=== PATIENT | male | born 1985 | race African-American/Black ===

== ENCOUNTER 2017-04-29 12:16 | Inpatient (IN) | payer SELFPAY ==
[2017-04-29] VITALS (9 sets, daily range): BP systolic 104–125; BP diastolic 61–77; Ht 182.9 cm; Wt 92.7 kg
[~2017-04-29] VITALS: Ht 182.9 cm; Wt 92.7 kg
--- NOTE | ~2017-04-29 | CN ---
PATIENT NAME:MATHEW PRETTY MEDICAL RECORD: [id number] : 81 LOCATION:[id number] ADMIT DATE: 04/29/17 ACCOUNT: [id number] CONSULTING PHYSICIAN: GUILLERMO MAYES MD REFERRING PHYSICIAN: CLARITA JORGE MD CONSULT DATE: 04/30/17 HISTORY OF PRESENT ILLNESS: The patient is a 31-year-old gentleman with no known medical history. He was brought in by EMS. He initially was combative and was given Versed and Haldol. Currently he is somewhat difficult to wake. Toxicology screen was positive for opiates, amphetamines, and benzodiazepines. He had elevated troponin at 0.8. Electrocardiogram is without acute change. Left ventricular hypertrophy only. He denies chest pain. Otherwise, poor historian. PAST MEDICAL HISTORY: Unremarkable per chart. ALLERGIES: None known per chart. SOCIAL HISTORY: Unobtainable. REVIEW OF SYSTEMS: Unobtainable. CURRENT MEDICATIONS: None known. PHYSICAL EXAMINATION: GENERAL: Sedated, appears well. No acute distress. VITAL SIGNS: Blood pressure 103/68. Pulse 55 and regular. HEAD, EYES, EARS, NOSE, AND THROAT: Normocephalic, atraumatic. NECK: No bruits. HEART: Regular. LUNGS: Good air excursion. ABDOMEN: Soft, nontender. PULSES: 2+ with no edema. ELECTROCARDIOGRAM: Shows left ventricular hypertrophy with sinus arrhythmia. 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 Given age and no electrocardiographic changes, suspect this may be related to a vasospastic component. Will check echocardiographic study to assess any focal wall motion. However, no further methamphetamine use would probably be the preferred treatment at this point. GUILLERMO MAYES MD CC: [id number] DICTATION DATE: 04/30/172002 ENGRAVER SEALS: TC 04/30/172001 ADM IN [facility] [address] [place] [address]
[2017-04-29 12:33] LABS: BASOPHILS 0.3 % (0-2); EOSINOPHILS 1.1 % (0-7); HEMATOCRIT 43.7 % (42.0-54.0); HEMOGLOBIN 14.7 g/dL (13.5-17.5); IMMATURE GRANULOCYTES 0.1 % (0-5); LYMPHOCYTES 18.4 % (15-50); MCH 27.5 pg (26.0-34.0); MCHC 33.6 g/dL (31.0-37.0); MCV 81.7 fL (80.0-100.0); MEAN PLATELET VOLUME 10.3 fL (7.4-10.4); MONOCYTES 12.9 % (2-11); NEUTROPHILS 67.2 % (40-80); PLATELET COUNT 202 10x3/uL (130-400); RBC 5.35 10x6/uL (4.20-6.10); RDW 13.3 % (11.5-14.5)
[2017-04-29 12:40] LABS: UDS - AMPHET POSITIVE QUAL (NEGATIVE); UDS - BARB NEGATIVE QUAL (NEGATIVE); UDS - BENZO POSITIVE QUAL (NEGATIVE); UDS - COCAINE NEGATIVE QUAL (NEGATIVE); UDS - METH NEGATIVE QUAL (NEGATIVE); UDS - OPIATE POSITIVE QUAL (NEGATIVE); UDS - PCP NEGATIVE QUAL (NEGATIVE); UDS - THC NEGATIVE QUAL (NEGATIVE)
[2017-04-29 12:42] LABS: APPEARANCE HAZY (CLEAR); BILIRUBIN 1+ (NEGATIVE); COLOR YELLOW (YELLOW); GLUCOSE NEGATIVE (NEGATIVE); KETONE SMALL mg/dL (NEGATIVE); LEUKOCYTE ESTERASE TRACE (NEGATIVE); NITRITE NEGATIVE (NEGATIVE); PROTEIN 2+ mg/dL (NEGATIVE); SPECIFIC GRAVITY 1.025 (1.005-1.020); UROBILINOGEN NORMAL (NORMAL)
[2017-04-29 12:45] LABS: ALBUMIN 4.3 g/dL (3.4-5.0); ANION GAP 14.2 mmol/L (8-16); BILIRUBIN - TOTAL 0.76 mg/dL (0.2-1.3); CALCIUM 9.2 mg/dL (8.5-10.1); CARBON DIOXIDE 26.8 mmol/L (21.0-32.0); PROTEIN - SERUM 8.7 g/dL (6.4-8.2)
[2017-04-29 12:47] LABS: BACTERIA MANY /hpf (NONE SEEN); EPITHELIAL CELLS 0-5 /hpf (0-5); RED CELLS - URINE 0-5 /hpf (0-5); WHITE CELLS - URINE 0-5 /hpf (0-5)
[2017-04-29 12:48] LABS: GRANULAR CAST 0-5 /lpf (NONE SEEN); HYALINE CAST 0-5 /lpf (NONE SEEN); MUCUS >1+ /lpf (NONE SEEN)
[2017-04-29 12:51] LABS: CREATININE - SERUM 1.2 mg/dL (0.6-1.3)
[2017-04-29 13:40] LABS: CKMB 4.4 U/L (0.0-3.6)
[2017-04-29 13:41] LABS: CREATINE KINASE 1218 UL (21-232)
[2017-04-29 15:25] LABS: CREATINE KINASE 1051 UL (21-232)
[2017-04-29 15:26] LABS: TROPONIN-I 0.809 ng/mL (0.000-0.060)
[2017-04-29 15:28] LABS: CKMB 4.3 U/L (0.0-3.6)
--- NOTE | 2017-04-29 15:45 | NUR ---
1515 RECEIVED PT FROM ER VIA [facility][ANIONED BY ER NURSE AND FAMILY. TRANSFERRED TO ICU BED HOOKED UP TO MONITORS. VSS. PT SNORING, UNREPSONSIVE EXCEPT TO PAINFUL STIMULI. WILL WITHDRAWAL, DOES NOT FOLLOW COMMANDS. GIVEN HALDOL AND VERSED IN ROUTE BY EMS PER ER NURSE. LUNGS NOTED TO BE COARSE. MAGALLANES IN PLACE DRAINING DARK URINE TO BEDSIDE BAG. ASSESSMENT COMPLETED, ALL HX OBTAINED BY MOTHER AT THE BEDSIDE. ALL QUESITONS ANSWERED. NO DISTRESS NOTED WILL CONTINUE TO MONITOR CLOSELY
--- NOTE | 2017-04-29 17:13 | NUR ---
IN UNIT TO SEE PT, NEW ORDER TO CINSULT CARDIOLOGY SPOKE WITH REC THERAPIST [employer] SUPERINTENDENT AND REPORTED LAB VALUES TO HIM, ANSWERED HIS QUESTIONS. REC THERAPIST STATED NOT TO DRAW ANY MORE CARDIAC ENZYMES ON PT. WILL CONT TO MONITOR
--- NOTE | 2017-04-29 19:30 | NUR ---
Assessment complete. See flowsheet. Pt snoring upon entrance and self-positioned to back with HOB @ 30 degrees upon entrance into room. Pt receiving O2 @ 5L NC with SPO2 98% and decreased to 4L NC to maintain SPO2 > 92%. Pt grimaces to painful stimulation and withdraws extremities but does not open eyes or attempt to conversate or follow commands. Lung sounds clear to all muñoz. HR SR with S1S2 auscultated. All peripheral pulses +2 with capillary refill <3 seconds. Right hand 20g PIV site CDI; saline locked. Left wrist 18g PIC site CDI; saline locked. BS present to all quadrants. Pt continues to rest and snore. Call light within pt reach. VSS. CPOC.
--- NOTE | 2017-04-29 21:30 | NUR ---
Pt mother here and pt awakens briefly for sips of water and back to sleep. FiO2 decreased to 3L NC.
--- NOTE | 2017-04-29 23:30 | NUR ---
Reassessment complete. See flowsheet. Pt resting with VSS and awakens to verbal stimulation and very lethargic. Pt helped with sips of water and back to sleep without conversation. O2 decreased to 2L NC. Lung sounds CTA. HR SR with S1S2 auscultated. All peripheral pulses +2 with capillary refill <3 seconds. BS present to all quadrants. PIV sites remain CDI; saline locked. NO other changes to note. Call light and bedside table remain within pt reach. CPOC.
[2017-04-30] VITALS (24 sets, daily range): BP systolic 98–127; BP diastolic 45–93
--- NOTE | 2017-04-30 01:30 | NUR ---
Pt awake and lethargic and helped with sips of water. Pt speech very quiet but denies pain at this time. Pt self-positioning to right side after sips and eyes closed again to rest. VSS. O2 @ 2L NC. Call light and bedside table remain within pt reach. CPOC.
--- NOTE | 2017-04-30 03:30 | NUR ---
Reassessment complete. See flowsheet. Pt resting quietly to right side with VSS. SPO2 98% on 2L NC. Pt awakens to verbal stimulation and follows conversation briefly. Pt is soft-spoken but oriented at this time. Pain denied. Pt provided with fresh water per request. Lung sounds CTA. HR SR with S1S2 auscultated. All peripheral pulses +2 with capillary refill <3 seconds. PIV sites remain CDI; saline locked with no s/s infection. BS +. Pt continues to self-position for comfort. Further needs denied. Pt continues to rest. Call light and bedside table within pt reach. CPOC.
--- NOTE | 2017-04-30 05:30 | NUR ---
Pt resting quietly with VSS. NO s/s pain or distress and allowed to continue resting undisturbed. Call light and bedside table remain within reach. CPOC.
--- NOTE | 2017-04-30 08:18 | NUR ---
PATIENT SLEEPING AROUSES TO VERBAL STIMULI FOR ASSESSMENT THEN RETURNS TO SLEEP. PATIENT DENIES ANY PAIN OR NEEDS AT THIS TIME. CALL LIGHT WITHIN REACH, AND BED IN LOW POSISTION. PATIENT IS ORIENTED X3, COMMUNICATES NEEDS WELL. LUNGS CTA THROUGHOUT ALL LOBES, RESPIRATIONS UNLABORED AND EVEN. HEART TONES RRR AUSC, ALL SMC'S ARE INTACT. ABDOMEN SOFT AND NON-TENDER TO PALPATION, BS PRESENT X4 QUADS. SKIN WARM, DRY, AND PINK. CAP REFILL<3SECS. SALINE LOCK NOTED IN L WRIST 18G AND L HAND 20G BOTH ARE INTACT. PATIENT HAS SCD'S ON.
--- NOTE | 2017-04-30 09:17 | NUR ---
PATIENT AWAKE AND REQUESTING SOMETHING TO EAT. REGULAR DIET ORDERED. MOTHER AT BEDSIDE VISISTING WITH NO ISSUES. H2O GIVEN PER PATIENT REQUEST.
--- NOTE | 2017-04-30 09:30 | NUR ---
PATIENT REQUESTING TO SPEAK WITH PHYSICIAN BECAUSE HE WANTS TO LEAVE. EXPLAINED TO PATIENT THAT PHYSICIAN HAD ALREADY MADE HIS ROUNDS, THAT HIS BREAKFAST HAD BEEN ORDERED, AND THAT HE COULD LEAVE AMA THAT WAS HIS DECISION. EXPLAINED TO PATIENT THAT HE HAD A CONSULT WITH CARDIOLOGY DUE TO SOME CHANGES ON EKG WITH CONCERNS OF POSSIBLE HEART ATTACK. PATIENT VERBALIZED UNDERSTANDING AND STATES "I JUST WANTED TO LEAVE BECAUSE I WAS HUNGRY". PATIENT STATES THAT "I JUST GOT OUT OF CARE HOME 3 DAYS AGO, AND LAST NIGHT I HAD SOME PEOPLE CHASING ME THAT HAVE A BEEF WITH ME". "I CALLED THE POLICE MYSELF, WHEN THEY ARRIVED I WAS TRYING TO TELL THEM WHAT HAPPENED, AND THEY INJECTED ME WITH A MEDICATION.
[2017-04-30 09:58] LABS: BASOPHILS 0.4 % (0-2); EOSINOPHILS 3.6 % (0-7); HEMATOCRIT 38.6 % (42.0-54.0); HEMOGLOBIN 12.7 g/dL (13.5-17.5); LYMPHOCYTES 29.4 % (15-50); MCH 27.5 pg (26.0-34.0); MCHC 32.9 g/dL (31.0-37.0); MCV 83.5 fL (80.0-100.0); MEAN PLATELET VOLUME 9.4 fL (7.4-10.4); MONOCYTES 9.8 % (2-11); NEUTROPHILS 56.8 % (40-80); RBC 4.62 10x6/uL (4.20-6.10); RDW 13.3 % (11.5-14.5)
[2017-04-30 10:00] LABS: PLATELET COUNT 161 10x3/uL (130-400); WBC 4.7 10x3/uL (4.8-10.8)
[2017-04-30 10:29] LABS: ALKALINE PHOSPHATASE 121 U/L (46-116); ALT (SGPT) 38 U/L (10-68); BILIRUBIN - TOTAL 0.63 mg/dL (0.2-1.3); CALCIUM 8.1 mg/dL (8.5-10.1); CARBON DIOXIDE 27.7 mmol/L (21.0-32.0); CHLORIDE - SERUM 104 mmol/L (98-107); CREATININE - SERUM 0.9 mg/dL (0.6-1.3); GLUCOSE 84 mg/dL (74-106); PROTEIN - SERUM 7.1 g/dL (6.4-8.2); SODIUM 139 mmol/L (136-145); eGFR NON AFRICAN AMERICAN > 90 mL/min (90-120)
[2017-04-30 10:33] LABS: ALBUMIN 3.1 g/dL (3.4-5.0); CALC OSMOLALITY 275 mosm/kg (275-300); POTASSIUM - SERUM 3.6 mmol/L (3.5-5.1); TROPONIN-I 0.277 ng/mL (0.000-0.060); UREA NITROGEN 11 mg/dL (7-18)
--- NOTE | 2017-04-30 11:22 | NUR ---
* Is the patient Alert and Oriented? Yes 0 * PCP None 0 * Pharmacy [facility] [address] 0 * Preadmission Environment Other 0 * Other Environment Living with different friends 0 * ADLs Independent 0 * List name and contact numbers for known caregivers / representatives who currently or will assist patient after discharge: Mother - Lyla Vick [phone] or [phone] * Has this patient been hospitalized within the prior 30 days at any hospital? No 04/30/2017 11:23 DCP: Discharge Planning Patient Name: MATHEW PRETTY Admission Status: ER Accout number: [id number] Admission Date: 04-29-2017 : 1985 Admission Diagnosis: Attending: DEIDRE Current LOS: 1 Planned Disposition: Primary Insurance: UNINSURED DISCOUNT PLAN Discharge Planning Comments: CM met with patient to assess dc plans/needs. Patient is awake, alert & oriented x3. He states he was released from residential about 4 days ago - states he was there for 6 months. He states he has been staying with "different friends" since his release. He denies he has a drug problem - he states he only uses drugs when he wants to. Discussed rehab/counseling options with patient & mother, who is at bedside. He states he does not need rehab. Attempted to leave him printed material about different programs - refused to accept it. His mother took it. At discharge, he states he is going back to a friends house. He states he is going to go now if he doesn't get something to eat. Explained to him his nurse is working on getting him a diet order and a meal tray - verbalized understanding. Case management will follow & assist as needed. Mortgage Field Inspector: Renetta Solano
--- NOTE | 2017-04-30 12:40 | NUR ---
PATIENT UP TO BSC HAD SOFT NON-FORMED STOOL. PATIENT GIVEN WIPES AND EXPLAINED FOR HIM TO CLEAN AROUND HIS MAGALLANES. PATIENT VERBALIZED UNDERSTANDING AND PERFORMED 100% RYANNE/MAGALLANES CARE.
--- NOTE | 2017-04-30 14:30 | NUR ---
PATIENT SLEEPING WITHOUT DISTRESS NOTED AND HEAD OF BED SLIGHTLY ELEVATED. MAGALLANES INTACT AND PATENT.
--- NOTE | 2017-04-30 16:00 | NUR ---
I&O'S BEING COMPLETED PATIENT IS VERY TALKATIVE. PATIENT ASKING ABOUT BEING DISCHARGED TOMORROW. EXPLAINED THAT HE WAS NOT FULLY AWAKE WHEN THE PHYSICIAN CAME AROUND, THAT HE HAD ECHO TO BE PERFOMRED THIS AFTERNOON.
--- NOTE | 2017-04-30 17:26 | NUR ---
PATIENT IS SLEEPING, NO DISTRESS NOTED AT THIS TIME. 100% OF DINNER CONSUMED.
--- NOTE | 2017-04-30 18:07 | NUR ---
MAGALLANES DC'D DUE TO PATIENT BEING FULLY AWAKE AND CAPABLE OF URININATING IN URINAL. PATIENT WAS GLAD FOR IT TO BE REMOVED. CATH IS INTACT WITHOUT DISCOLORATION NOTED.
--- NOTE | 2017-04-30 19:30 | NUR ---
Assessment complete. See flowsheet. Pt awake and ambulating around room. No neuro deficits noted. Pt calm and cooperative at this time and following all conversation. O2 RA. Respirations unlabored. Lung sounds CTA. HR SR with S1S2 auscultated. All peripheral pulses +2 with capillary refill <3 seconds. Right hand 20g PIV site CDI; saline locked. Left wrist 18g PIV site CDI; saline locked. Abdomen soft with BS present to all quadrants. Bedside toilet emptied of 700cc diarrhea. Pt provided with ice cream and clear soda per request. Call light and bedside table within pt reach. Urinal on bedside table. Pt denies pain or further needs at this time. CPOC.
--- NOTE | 2017-04-30 20:30 | NUR ---
Pt asleep and self-positioned to left side.
--- NOTE | 2017-04-30 20:49 | NUR ---
Up to bedside toilet for BM (diarrhea) and gas with urine approx 250cc.
--- NOTE | 2017-04-30 21:17 | NUR ---
Mother here for visitation with update given and questions addressed. Sodas provided to patient per request.
--- NOTE | 2017-04-30 22:20 | NUR ---
Pt sleeping to right side. VSS.
--- NOTE | 2017-04-30 23:30 | NUR ---
Reassessment complete. See flowsheet. Pt resting on back with no changes to note. VSS. O2 RA. HR SR. Lung sounds CTA. BS +. Pt continues to self-position for comfort. Pain denied upon awakening to verbal stimulation. Call light and bedside table within reach. CPOC.
[2017-05-01] VITALS (10 sets, daily range): BP systolic 94–114; BP diastolic 48–90
--- NOTE | 2017-05-01 01:30 | NUR ---
Pt resting quietly with VSS. No s/s pain or distress and allowed to continue resting undisturbed. Call light and bedside table remain within reach. CPOC.
--- NOTE | 2017-05-01 03:30 | NUR ---
Reassessment complete. See flowsheet. Pt resting to left with no changes to note. VSS. O2 RA. HR SR. Lung sounds CTA. BS +. Pt continues to self-position for comfort. Pain denied upon awakening to verbal stimulation. Call light and bedside table within reach. CPOC.
[2017-05-01 04:00] LABS: BASOPHILS 0.2 % (0-2); EOSINOPHILS 3.8 % (0-7); HEMATOCRIT 38.3 % (42.0-54.0); HEMOGLOBIN 12.4 g/dL (13.5-17.5); IMMATURE GRANULOCYTES 0.2 % (0-5); LYMPHOCYTES 32.1 % (15-50); MCH 26.9 pg (26.0-34.0); MCHC 32.4 g/dL (31.0-37.0); MCV 83.1 fL (80.0-100.0); MEAN PLATELET VOLUME 9.6 fL (7.4-10.4); MONOCYTES 10.8 % (2-11); NEUTROPHILS 52.9 % (40-80); PLATELET COUNT 191 10x3/uL (130-400); RBC 4.61 10x6/uL (4.20-6.10); RDW 13.2 % (11.5-14.5); WBC 5.3 10x3/uL (4.8-10.8)
[2017-05-01 04:15] LABS: ALKALINE PHOSPHATASE 130 U/L (46-116); ALT (SGPT) 32 U/L (10-68); BILIRUBIN - TOTAL 0.19 mg/dL (0.2-1.3); CALC OSMOLALITY 277 mosm/kg (275-300); CALCIUM 8.1 mg/dL (8.5-10.1); CARBON DIOXIDE 27.2 mmol/L (21.0-32.0); CHLORIDE - SERUM 104 mmol/L (98-107); GLUCOSE 93 mg/dL (74-106); POTASSIUM - SERUM 3.2 mmol/L (3.5-5.1); PROTEIN - SERUM 6.7 g/dL (6.4-8.2); SODIUM 139 mmol/L (136-145); UREA NITROGEN 13 mg/dL (7-18); eGFR NON AFRICAN AMERICAN > 90 mL/min (90-120)
--- NOTE | 2017-05-01 05:30 | NUR ---
Pt awake and watching television with VSS. Clear soda provided per pt request.
--- NOTE | 2017-05-01 06:46 | NUR ---
Pt provided with bath essentials per request. Mother here with update given.
[2017-05-01] MEDS ORDERED: K-TAB10 MEQ PO (10:39)
--- NOTE | 2017-05-01 11:31 | NUR ---
SALINE LOCK REMOVED FROM WRIST AND HAND WITH PRESSURE HELD AND PRESSURE DRESSING APPLIED. PATIENT INSTRUCTED THAT HE COULD REMOVE IN 20MINS, PATIENT VERBALIZES UNDERSTANDING.
--- NOTE | 2017-05-01 11:50 | NUR ---
DISCHARGE INSTRUCTIONS GIVEN WITH VERBAL EXPLANATION. PATIENT VERBALIZES UNDERSTANDING, AND PROPER SIGNATURES OBTAINED.
--- NOTE | 2017-05-01 12:00 | NUR ---
PATIENT DISCHARGED TO POV VIA WHEELCHAIR TO FRONT OF HOSPITAL ENTERANCE. PATIENT TRANSFERS SELF WITH EASE.
== END 2017-05-01 12:00 | disposition home or self-care (01) | DRG 918 ==
LOC: D.ER 12:16 → D.ICU 14:40
PROVIDERS: Family Medicine; ADMIT Family Medicine
DX: T43.621A Poisoning by amphetamines, accidental (unintentional), initial encounter (principal); I24.9 Acute ischemic heart disease, unspecified; T40.601A Poisoning by unspecified narcotics, accidental (unintentional), initial encounter; E87.6 Hypokalemia; Y92.9 Unspecified place or not applicable; Z72.0 Tobacco use